=== PATIENT | male | born 1950 | race Caucasian/White ===

== ENCOUNTER → 2024-01-29 10:34 | Outpatient (CLI) | payer OTHER, SELFPAY ==
[2024-01-29 12:29] LABS: Alanine Aminotransferase 17 IU/L (<50); Albumin Globulin Ratio 1.3 (1.0-2.8); Alkaline Phosphatase 71 U/L (38-126); Aspartate Aminotransferase 20 IU/L (17-59); BUN Creatinine Ratio 23.7 (6-22); Bilirubin Total 0.7 mg/dL (0.2-1.3); Blood Urea Nitrogen 22 mg/dL (9-20); Calcium 8.9 mg/dL (8.4-10.2); Carbon Dioxide 31 mmol/L (22-32); Chloride 106 mmol/L (98-107); Cholesterol 109 mg/dL (140-199); Estimated Glomerular Filt Rate > 60 mL/min (>60); Globulin 3.1 g/dL (1.7-4.1); Glucose 129 mg/dL (80-110); HDL Cholesterol 47 mg/dL (40-60); HEMOLYSIS < 15 (0-50); LDL Cholesterol Calculated 44 mg/dL (<100); Potassium 4.7 mmol/L (3.4-5.1); Sodium 140 mmol/L (137-145); Total Protein 7.1 g/dL (6.3-8.2); Triglycerides 91 mg/dL (35-150)
[2024-01-29 12:58] LABS: Hemoglobin A1C% w Est Avg Glu 6.2 % (4.0-6.0)
[2024-01-29 17:53] LABS: Microalbumin Urine Random 0.7 mg/dL (0-1.6)
== END ==
LOC: LAB 10:35
PROVIDERS: PCP Family Medicine; Referring Provider Family Medicine; Visit Provider Family Medicine
DX: I10 Essential (primary) hypertension (principal); E11.9 Type 2 diabetes mellitus without complications
CPT/HCPCS: 36415; 80053; 80061; 82043; 82570; 83036

== ENCOUNTER → 2024-03-09 10:40 | Outpatient (CLI) | payer OTHER, SELFPAY ==
--- NOTE | 2024-03-09 10:42 | DI.RAD.S_ITS ---
PROCEDURE: XR HIP W PEL IF DONE JOSE MIN 4V INDICATIONS: osteoarthritis TECHNIQUE: AP pelvis with lateral view(s) of both hip(s). COMPARISON: None. FINDINGS: Bones: No fractures or dislocations. Pelvic ring appears intact. No suspicious bony lesions. Mild osteoarthritis both hip joints. Soft tissues: The visualized bowel gas pattern is normal. No suspicious soft tissue calcifications. Phleboliths are seen within the pelvis. IMPRESSION: 1. No acute fracture or dislocation. 2. Mild osteoarthritis to both hip joints. Dictated by: Luc Acosta M.D. on 03/09/2024 at 16:01 Approved by: Luc Acosta M.D. on 03/09/2024 at 16:05
--- NOTE | 2024-03-09 10:42 | DI.RAD.S_ITS ---
PROCEDURE: XR LUMBAR SPINE 2-3V INDICATIONS: osteoarthritis TECHNIQUE: 3 views of the lumbar spine were acquired. COMPARISON: None. FINDINGS: Bones: 5 [id number]-[id number] vertebrae are present. Minimal retrolisthesis of L5-S1. No vertebral body compression fractures. No suspicious bony lesions. Multilevel facet arthropathy. Mild multilevel disc height loss. Soft tissues: Overlying bowel gas pattern is normal. No suspicious soft tissue calcifications. IMPRESSION: 1. No acute fracture or subluxation. 2. Minimal retrolisthesis of L5 on S1. 3. Mild multilevel disc height loss. 4. Multilevel facet arthropathy. Dictated by: Luc Acosta M.D. on 03/09/2024 at 15:56 Approved by: Luc Acosta M.D. on 03/09/2024 at 16:01
[2024-03-09 12:39] LABS: Prostate Specific Antigen 0.145 ng/mL (0.10-4.00)
== END ==
PROVIDERS: PCP Family Medicine; Referring Provider Urology; Visit Provider Family Medicine
DX: M19.90 Unspecified osteoarthritis, unspecified site (principal); C61 Malignant neoplasm of prostate; M47.816 Spondylosis without myelopathy or radiculopathy, lumbar region; M16.0 Bilateral primary osteoarthritis of hip
CPT/HCPCS: 36415; 72100; 73522; 84153

== ENCOUNTER → 2024-03-17 13:41 | Outpatient (CLI) | payer OTHER, SELFPAY | LOC: CAR 13:43 | PROVIDERS: PCP Family Medicine; Referring Provider Family Medicine; Visit Provider Family Medicine | DX: I49.1 Atrial premature depolarization (principal); I10 Essential (primary) hypertension | CPT/HCPCS: 93242 ==

== ENCOUNTER → 2024-07-12 09:16 | Outpatient (CLI) | payer OTHER, SELFPAY ==
--- NOTE | 2024-07-12 09:16 | DI.ECHO.S_ITS ---
[place] [facility] : : [address] : : [address] [place] : : [id number] : : Phone: [phone] Echocardiogram Report + + :Name: LARISA DICKSON Study Date: 07/12/2024 Height: 71 in : :[facility] ReadingLocation: Weight: 190 lb : : Gender: Male BSA: 2.1 m2 : :: 1950 Age: 73 yrs BP: 160/78 mmHg: :Reason For Study: PALPITATIONS, PACs : :Ordering Physician: PATY, : :DU Performed By: Pancho Olivarez : :Referring: DU NEWMAN : + + Interpretation Summary The ejection fraction is estimated to be 50-55%. Diastolic function could not be accurately assessed due to contradictory data. The right ventricle is normal in size and function. There is mild biatrial enlargement. There is mild mitral regurgitation. There is mild aortic stenosis. There is mild to moderate aortic regurgitation. Pulmonary artery pressures cannot be estimated because of the lack of a measurable TR jet velocity but the IVC suggests a CVP of around 15 mmHg. Procedure: A two-dimensional transthoracic echocardiogram with color flow and Doppler was performed. The study quality was technically good. There is no prior echocardiogram noted for this patient. The patient was in normal sinus rhythm during the exam. Left Ventricle: The left ventricle is normal in size. There is normal left ventricular wall thickness. There is no ventricular septal defect visualized. The ejection fraction is estimated to be 50-55%. Septal motion is consistent with conduction abnormality. Diastolic function could not be accurately assessed due to contradictory data. Right Ventricle: The right ventricle is normal in size and function. Atria: There is mild biatrial enlargement. The atrial septum is aneurysmal. Mitral Valve: There is mild mitral annular calcification. The mitral valve leaflets appear mildly thickened, but open well. There is borderline mitral valve prolapse. There is mild mitral regurgitation. Aortic Valve: The aortic valve is trileaflet. Heavy calcification of the right coronary cusp. There is mild aortic stenosis. The peak aortic velocity is 2.6 m/sec. The aortic valve mean gradient is 17 mmHg. The calculated aortic valve area is 1.6 cm2. There is mild to moderate aortic regurgitation. Tricuspid Valve: The tricuspid valve leaflets are thickened and/or calcified, but open well. There is trace tricuspid regurgitation. Pulmonary artery pressures cannot be estimated because of the lack of a measurable TR jet velocity but the IVC suggests a CVP of around 15 mmHg. Pulmonic Valve: The pulmonic valve leaflets are thin and pliable; valve motion is normal. There is no pulmonic valvular regurgitation. Great Vessels: The aortic root is normal size. The dimensions of the ascending aorta are normal. The pulmonary artery is normal size. The IVC is dilated (diameter is greater than 2.1 cm) and it collapses less than 50% with a sniff. This suggests a high right atrial pressure of 15 mm Hg. Pericardium/ Pleura There is no pericardial effusion. There is no pleural effusion. MMode/2D Measurements & Calculations LVIDd: 5.0 cm LVOT diam: 2.2 cm LVIDs: 3.6 cm Ao root diam: 3.4 cm FS: 27.4 % asc Aorta Diam: 3.7 cm EPSS: 0.89 cm Ao Arch Diam (Prox Trans): 2.0 cm IVSd: 1.1 cm LVPWd: 1.00 cm LV james. diameter/BSA (cm/m^2): 2.4 LV sys. diameter/BSA (cm/m^2): 1.8 LA A2 area: 20.8 cm2 RA long axis: 4.8 cm LA A4 area: 21.1 cm2 RA area: 16.8 cm2 LA length (vol): 5.2 cm RA vol: 49.9 ml LA vol: 71.1 ml RA : 24.2 ml/m2 LA vol index: 34.5 ml/m2 IVC diam: 2.2 cm RVD1 (basal): 3.9 cm RVD2 (mid): 3.4 cm TAPSE: 2.4 cm Doppler Measurements & Calculations Ao V2 max: 262.7 cm/sec LVOT Max Harjit: 102.5 cm/sec Ao V2 mean: 192.6 cm/sec LV V1 max P.2 mmHg Ao max P.6 mmHg LV V1 VTI: 23.1 cm Ao mean P.2 mmHg AARON(I,D): 1.6 cm2 Ao V2 VTI: 55.7 cm AARON(V,D): 1.5 cm2 sev ratio: 0.41 AARON indexed to BSA (cm^2/m^2): 0.80 AI P1/2t: 421.3 msec AI dec slope: 317.1 cm/sec2 MV E max harjit: 46.2 cm/sec TR max harjit: 274.8 cm/sec MV A max harjit: 73.4 cm/sec TR max P.2 mmHg MV E/A: 0.63 PA V2 max: 89.1 cm/sec Med Peak E' Harjit: 5.0 cm/sec PA V2 mean: 47.1 cm/sec E/E' med: 9.2 PA mean P.2 mmHg Lat Peak E' Harjit: 6.3 cm/sec PA pr(Accel): 43.0 mmHg E/E' lat: 7.3 E/e' average: 8.3 MV dec time: 0.18 sec SV(LVOT): 91.5 ml AV P1/2t-pr_phl: 544.6 msec Reading Physician:01:56 PM
== END ==
LOC: ECHO 09:16
PROVIDERS: PCP Family Medicine; Referring Provider Family Medicine; Visit Provider Family Medicine
DX: I08.0 Rheumatic disorders of both mitral and aortic valves (principal); I49.1 Atrial premature depolarization; I45.4 Nonspecific intraventricular block
CPT/HCPCS: 93306

== ENCOUNTER → 2024-07-19 08:52 | Outpatient (CLI) | payer OTHER, SELFPAY ==
[2024-07-19 09:16] LABS: Add Manual Diff / Slide Review NO; Basophils Absolute Auto 0 /uL (0-100); Basophils Percent Auto 0.6 % (0-2); Eosinophils Absolute Auto 100 /uL (0-450); Eosinophils Percent Auto 2.5 % (2-4); Hematocrit 41.2 % (41-53); Hemoglobin 13.7 g/dL (13.5-17.5); Lymphocytes Absolute Auto 1100 /uL (1100-4500); Lymphocytes Percent Auto 19.6 % (25-40); Mean Corpuscular HGB Conc 33.3 % (30-36); Mean Corpuscular Hemoglobin 30.1 PG (26-34); Mean Corpuscular Volume 90.4 fL (80-100); Monocytes Absolute Auto 500 /uL (0-900); Neutrophils Absolute Auto 4000 /uL (1500-7000); Neutrophils Percent Auto 68.3 % (50-75); Platelet Count 207 X10^3/uL (150-400); Red Blood Cell Count 4.56 X10^6/uL (4.5-5.9); Red Cell Distribution Width 13.3 % (11.6-14.8); White Blood Cell Count 5.8 X10^3/uL (4.5-11.0)
[2024-07-19 09:35] LABS: INR 1.1 (0.9-1.3); Prothrombin Time 12.1 SECONDS (9.4-12.5)
[2024-07-19 09:46] LABS: Alanine Aminotransferase 21 IU/L (<50); Albumin 3.7 g/dL (3.5-5.0); Albumin Globulin Ratio 1.3 (1.0-2.8); Alkaline Phosphatase 63 U/L (38-126); Aspartate Aminotransferase 23 IU/L (17-59); BUN Creatinine Ratio 24.5 (6-22); Bilirubin Total 0.7 mg/dL (0.2-1.3); Blood Urea Nitrogen 25 mg/dL (9-20); Calcium 9.1 mg/dL (8.4-10.2); Carbon Dioxide 28 mmol/L (22-32); Chloride 104 mmol/L (98-107); Cholesterol 111 mg/dL (140-199); Estimated Glomerular Filt Rate > 60 mL/min (>60); Globulin 2.9 g/dL (1.7-4.1); Glucose 133 mg/dL (80-110); HDL Cholesterol 42 mg/dL (40-60); HEMOLYSIS < 15 (0-50); LDL Cholesterol Calculated 46 mg/dL (<100); Potassium 4.2 mmol/L (3.4-5.1); Sodium 135 mmol/L (137-145); Total Protein 6.6 g/dL (6.3-8.2); Triglycerides 117 mg/dL (35-150)
[2024-07-19 10:15] LABS: Prostate Specific Antigen 0.209 ng/mL (0.10-4.00)
== END ==
LOC: LAB 08:53
PROVIDERS: PCP Family Medicine; Referring Provider Urology; Visit Provider Urology
DX: Z01.818 Encounter for other preprocedural examination (principal); Z01.810 Encounter for preprocedural cardiovascular examination; C61 Malignant neoplasm of prostate; E11.9 Type 2 diabetes mellitus without complications; I49.1 Atrial premature depolarization; I10 Essential (primary) hypertension
CPT/HCPCS: 36415; 80053; 80061; 84153; 85025; 85610; 99214

== ENCOUNTER → 2025-01-16 10:15 | Outpatient (CLI) | payer OTHER, SELFPAY ==
[2025-01-16 11:14] LABS: Hemoglobin A1C% w Est Avg Glu 5.9 % (4.0-6.0)
[2025-01-16 11:57] LABS: Prostate Specific Antigen 0.084 ng/mL (0.10-4.00)
== END ==
LOC: LAB 10:16
PROVIDERS: PCP Family Medicine; Referring Provider Family Medicine; Visit Provider Urology
DX: C61 Malignant neoplasm of prostate (principal); E11.9 Type 2 diabetes mellitus without complications
CPT/HCPCS: 83036; 84153

== ENCOUNTER 2025-02-28 21:48 | Emergency (ER) | payer OTHER, SELFPAY ==
[2025-02-28 21:54] VITALS: BP 148/65; PULSE 82; RESP 16; TEMP 37.1; O2SAT 94; BMI 28.4
[2025-02-28 22:21] LABS: Add Manual Diff / Slide Review NO; Hematocrit 35.9 % (41-53); Hemoglobin 12.5 g/dL (13.5-17.5); Lymphocytes Absolute Auto 800 /uL (1100-4500); Mean Corpuscular HGB Conc 34.8 % (30-36); Mean Corpuscular Hemoglobin 31.5 PG (26-34); Mean Corpuscular Volume 90.5 fL (80-100); Platelet Count 170 X10^3/uL (150-400)
--- NOTE | 2025-02-28 22:28 | DI.CT.S_ITS ---
PROCEDURE: CT ABDOMEN PELVIS W CON INDICATIONS: RLQ pain TECHNIQUE: After the administration of intravenous contrast, axial sections acquired from the lung bases to the pubic symphysis. Coronal and sagittal reformats were performed. For radiation dose reduction, the following was used: automated exposure control, adjustment of mA and/or kV according to patient size. COMPARISON: None. FINDINGS: Image quality: Diagnostic. Lower Chest: No significant findings. ABDOMEN: Liver: No solid mass. Gallbladder: No radiopaque gallstones or wall thickening. Biliary ducts: No biliary dilation. Pancreas: No ductal dilation. Spleen: Size is within normal limits. Adrenal Glands: No adrenal nodules. Kidneys and Ureters: There is a large cystic structure extending from the inferior pole the right kidney measuring approximately 14.1 x 12.5 x 12.3 cm with some areas of heterogeneity peripherally. There is significant edema and fluid surrounding the right kidney. There is a component of subcapsular hematoma measuring approximately 2.1 cm in thickness. There is a small area of higher density within the fluid surrounding the kidney, suggestive of blood product. Stomach and Bowel: Normal colonic caliber, without significant wall thickening. Diverticulosis without evidence of acute diverticulitis. Large stool burden. Peritoneum: No abnormal intraperitoneal fluid. No free air. Ventral Wall: No significant ventral hernia. Abdominal Nodes: No retroperitoneal or mesenteric adenopathy by size criteria. Vessels: Aorta and inferior vena cava are normal in size. Atherosclerotic vascular calcifications. PELVIS: Pelvic Organs: Unremarkable. Bladder: No bladder wall thickening, accounting for underdistention. Pelvic Nodes: No enlarged lymph nodes. Miscellaneous: No inguinal hernias are seen. Bones: No aggressive osseous abnormality. Degenerative changes of the spine. IMPRESSION: Significant edema and fluid surrounding the right kidney. There is a subcapsular hematoma within the right kidney measuring 2.1 cm the. Large cystic structure extending from the inferior aspect of the right kidney measuring up to 14 cm with some peripheral heterogeneity. Differential includes partial rupture of the cyst with hemorrhage versus a large hemorrhagic mass. Recommend urology consultation. Dictated by: Marvin Santana M.D. on 02/28/2025 at 23:18 Approved by: Marvin Santana M.D. on 02/28/2025 at 23:27
[2025-02-28 22:34] LABS: Alanine Aminotransferase 18 IU/L (<50); Albumin 3.9 g/dL (3.5-5.0); Albumin Globulin Ratio 1.4 (1.0-2.8); Alkaline Phosphatase 65 U/L (38-126); Blood Urea Nitrogen 19 mg/dL (9-20); Calcium 8.6 mg/dL (8.4-10.2); Carbon Dioxide 27 mmol/L (22-32); Chloride 103 mmol/L (98-107); Estimated Glomerular Filt Rate > 60 mL/min (>60); Globulin 2.8 g/dL (1.7-4.1); Glucose 140 mg/dL (70-99); HEMOLYSIS < 15 (0-50); Lipase 45 U/L (23-300); Potassium 3.8 mmol/L (3.4-5.1); Sodium 136 mmol/L (137-145); Total Protein 6.7 g/dL (6.3-8.2)
[2025-03-01] VITALS (14 sets, daily range): BP systolic 129–150; BP diastolic 61–87; PULSE 72–88; RESP 16–20; O2SAT 93–96
--- NOTE | 2025-03-01 01:14 | ED_ITS ---
HPI - Abdominal Pain General Chief Complaint: Abdominal Pain Stated Complaint: lower right abd pain Time Seen by Provider: 02/28/25 22:28 Source: patient and family Mode of arrival: Ambulatory History of Present Illness HPI narrative: 74-year-old male with history of prostate cancer treated 3 years ago by [facility], no other cancers known, complained of nontraumatic right lower quadrant pain starting 3:00 p.m. yesterday, no nausea or vomiting, no diarrhea, no back pain. No painful or frequent urination. Related Data Home Medications ?Medication ?Instructions ?Recorded ?Confirmed aspirin 81 mg tablet,delayed 81 mg PO DAILY Thin my bl ood? 01/29/24 01/18/25 release flaxseed oil miscellaneous To help my dry skin 01/29/24 01/18/25 multivitamin 1 tab PO DAILY 01/29/2412/26 omega 8-vsl-vql-fish oil 1,000 mg 1 cap PO DAILY Healt h benefits 01/29/24 01/18/25 (120 mg-180 mg) capsule (Fish Oil) Previous Rx's ?Medication ?Instructions ?Recorded naproxen 250 mg tablet 250 mg PO BID PRN pain #30 t abs 02/29/24 atorvastatin 10 mg tablet 10 mg PO DAILY #90 tabs 04/27 03/19 metformin 500 mg tablet 500 mg PO TID Diabetes #270 tabs 06/28/24 amlodipine 5 mg tablet 5 mg PO DAILY HBP #90 tabs 0 08/18/24 alprostadil 40 mcg intracavernosal 40 mcg intra-cavern osal 3XW #1 ea 08/25/24 kit oxybutynin chloride 5 mg tablet 5 mg PO BID PRN To hel p control 09/13/24 urgency #180 tabs finasteride 1 mg tablet 1 mg PO DAILY hair loss #90 tabs 09/22/24 pantoprazole 40 mg tablet,delayed 40 mg PO DAILY To he lp with 09/26/24 release heartburn #90 tabs irbesartan 150 mg tablet 150 mg PO DAILY HBP #90 tabs 09/30/24 pramoxine 1 % topical foam 1 applic MI TID #15 grams 0 01/18/25 (Proctofoam) doxazosin 2 mg tablet 2 mg PO DAILY #90 tabs 01/30 Allergies Allergy/AdvReac Type Severity Reaction Status Date / Time lisinopril AdvReac Mild Cough Verified 02/28/25 21:54 Patient History Medical History Vision disorder Psoriasis Osteoarthritis Allergies Shoulder pain COVID (~2021) Mumps Measles Chicken pox Tinnitus Hearing loss History of elevated PSA (~2019) BPH (benign prostatic hyperplasia) (~2019) Hemorrhoid Low testosterone Diabetes mellitus PAC (premature atrial contraction) Hypertension Prostate cancer Surgical History Anesthesia History of tonsillectomy (~1954) History of cataract removal with insertion of prosthetic lens (~08/2022) Prostate cancer (~2021) History of thumb surgery (~2021) Family History Grandfather History of heart disease Grandmother Cancer Social History Smoking Status: Never smoker alcohol intake: current (6 drinks per year on vacation ) substance use type: does not use Smoking Status: Never smoker Exam Narrative Exam Narrative: GENERAL: Well-developed patient, in mild distress. HEAD: Atraumatic. Normocephalic. EYES: Pupils equal round and reactive. Extraocular motions intact. No scleral icterus. No injection or drainage. ENT: Nose without bleeding, purulent drainage. Throat without erythema, tonsillar hypertrophy or exudate. Airway patent. NECK: Trachea midline. Non tender CARDIOVASCULAR: Regular rate and rhythm without murmurs, gallops, or rubs. RESPIRATORY: Clear to auscultation. Breath sounds equal bilaterally. No wheezes, rales, or rhonchi. GASTROINTESTINAL: Abdominal mass mid right side, 10 cm diameter, nonpulsatile, not particularly tender. No overlying skin changes. Normal bowel tones. EXTREMITIES: No edema or joint tenderness. BACK: Nontender without deformity or crepitance. No flank tenderness. NEURO: AOx3. Motor functions grossly nonfocal. SKIN: No rash or erythema of visible areas Initial Vital Signs Initial Vital Signs: Vital Signs Temperature 98.8 F 02/28/25 21:54 Pulse Rate 82 02/28/25 21:54 Respiratory Rate 16 02/28/25 21:54 Blood Pressure 148/65 H 02/28/25 21:54 Pulse Oximetry 94 02/28/25 21:54 Oxygen Delivery Method Room Air 02/28/25 21:54 Course Orders Ordered: ED Orders 02/28/25 22:05 Complete Blood Count AUTO DIFF Stat Comprehensive Metabolic Panel Stat Lipase Stat 02/28/25 22:28 CT abdomen pelvis w con Stat 03/01/25 01:19 Prothrombin Time INR Stat 03/01/25 01:45 Hemoglobin and Hematocrit Stat Type and Screen Stat Discontinued Medications Morphine Sulfate (Morphine 4 Mg/Ml Inj) 4 mg IV NOW ONE Stop: 03/01/25 06:08 Last Admin: 03/01/25 06:16 Dose: 4 mg Documented By: QUIN Ondansetron HCl (Ondansetron 4 Mg/2 Ml Inj) 4 mg IV NOW PRN PRN Reason: Nausea And Vomiting Last Admin: 03/01/25 06:16 Dose: 4 mg Documented By: QUIN Ondansetron HCl (Ondansetron 4 Mg Odt) 4 mg PO NOW PRN PRN Reason: Nausea And Vomiting Vital Signs Vital signs: Vital Signs - 8 hr 03/01/25 00:16 03/01/25 01:05 03/01/25 01:06 Pulse Rate 88 78 Respiratory Rate 20 17 Blood Pressure 139/87 137/63 Pulse Oximetry 96 96 Oxygen Delivery Method Room Air 03/01/25 01:06 03/01/25 01:30 03/01/25 01:30 Pulse Rate 80 81 Respiratory Rate 17 Blood Pressure 150/65 H Pulse Oximetry 95 95 Oxygen Delivery Method Room Air 03/01/25 02:00 03/01/25 02:00 03/01/25 02:30 Pulse Rate 81 75 Respiratory Rate 18 Blood Pressure 133/63 Pulse Oximetry 95 94 Oxygen Delivery Method Room Air 03/01/25 02:30 03/01/25 02:59 03/01/25 03:00 Pulse Rate 74 Respiratory Rate 17 Blood Pressure 139/63 134/62 Pulse Oximetry 94 Oxygen Delivery Method Room Air 03/01/25 03:00 03/01/25 03:30 03/01/25 03:30 Pulse Rate 75 75 Respiratory Rate Blood Pressure 138/65 Pulse Oximetry 94 95 Oxygen Delivery Method 03/01/25 04:00 03/01/25 04:00 03/01/25 04:30 Pulse Rate 72 Respiratory Rate 17 Blood Pressure 141/63 H 129/63 Pulse Oximetry 94 Oxygen Delivery Method 03/01/25 04:30 03/01/25 05:00 03/01/25 05:00 Pulse Rate 77 77 Respiratory Rate 17 Blood Pressure 142/61 H Pulse Oximetry 94 93 Oxygen Delivery Method Room Air 03/01/25 05:30 03/01/25 05:30 03/01/25 06:00 Pulse Rate 79 Respiratory Rate 16 Blood Pressure 141/64 H 130/61 Pulse Oximetry 93 Oxygen Delivery Method Room Air 03/01/25 06:00 Pulse Rate 81 Respiratory Rate 17 Blood Pressure Pulse Oximetry 94 Oxygen Delivery Method Room Air MDM - Abdominal Pain Lab Data Attestation: I reviewed the patient's lab results. Lab results narrative: White blood cell count 7900, hemoglobin 12.5, platelets adequate. Glucose 140. BUN 19 with creatinine 0.99. Serum CO2 27. Electrolytes unremarkable. Liver functions and lipase normal. 03/01/25 01:45 02/28/25 22:05 Labs: Lab Results 02/28/25 03/01/25 Range/Units 22:05 01:45 WBC 7.9 (4.5-11.0) X10^3/uL RBC 3.96 L (4.5-5.9) X10^6/uL Hgb 12.5 L 12.1 L (13.5-17.5) g/dL Hct 35.9 L 34.9 L (41-53) % MCV 90.5 (80-100) fL MCH 31.5 (26-34) PG MCHC 34.8 (30-36) % RDW 12.6 (11.6-14.8) % Plt Count 170 (150-400) X10^3/uL Neut % (Auto) 78.2 H (50-75) % Lymph % (Auto) 10.5 L (25-40) % Pike % (Auto) 9.0 (3-14) % Eos % (Auto) 0.8 L (2-4) % Baso % (Auto) 1.5 (0-2) % Neut # (Auto) 6200 (1667-9658) /uL Lymph # (Auto) 800 L (1946-2121) /uL Pike # (Auto) 700 (0-900) /uL Eos # (Auto) 100 (0-450) /uL Baso # (Auto) 100 (0-100) /uL PT 12.7 H (9.4-12.5) SECONDS INR 1.1 (0.9-1.3) Sodium 136 L (137-145) mmol/L Potassium 3.8 (3.4-5.1) mmol/L Chloride 103 (98-107) mmol/L Carbon Dioxide 27 (22-32) mmol/L BUN 19 (9-20) mg/dL Creatinine 0.99 (0.66-1.25) mg/dL Estimated GFR > 60 (>60) mL/min BUN/Creatinine Ratio 19.2 (6-22) Glucose 140 H (70-99) mg/dL Calcium 8.6 (8.4-10.2) mg/dL Total Bilirubin 0.8 (0.2-1.3) mg/dL AST 22 (17-59) IU/L ALT 18 (<50) IU/L Alkaline Phosphatase 65 (38-126) U/L Total Protein 6.7 (6.3-8.2) g/dL Albumin 3.9 (3.5-5.0) g/dL Globulin 2.8 (1.7-4.1) g/dL Albumin/Globulin Ratio 1.4 (1.0-2.8) Lipase 45 (23-300) U/L Blood Type A Negative Antibody Screen Negative Imaging Data CT scan - abdomen/pelvis: Radiologist's Impression: [place] [address] CT Scan Report Signed Patient: Axel Briggs MR#: [id number] : 1950 Acct:[id number] Age/Sex: 74 / M Date of Service: 02/28/25 Loc: ED Accession Number: [id number] Procedure: CT abdomen pelvis w con Ordering Provider: George Dickinson MD PROCEDURE: CT ABDOMEN PELVIS W CON INDICATIONS: RLQ pain TECHNIQUE: After the administration of intravenous contrast, axial sections acquired from the lung bases to the pubic symphysis. Coronal and sagittal reformats were performed. For radiation dose reduction, the following was used: automated exposure control, adjustment of mA and/or kV according to patient size. COMPARISON: None. FINDINGS: Image quality: Diagnostic. Lower Chest: No significant findings. ABDOMEN: Liver: No solid mass. Gallbladder: No radiopaque gallstones or wall thickening. Biliary ducts: No biliary dilation. Pancreas: No ductal dilation. Spleen: Size is within normal limits. Adrenal Glands: No adrenal nodules. Kidneys and Ureters: There is a large cystic structure extending from the inferior pole the right kidney measuring approximately 14.1 x 12.5 x 12.3 cm with some areas of heterogeneity peripherally. There is significant edema and fluid surrounding the right kidney. There is a component of subcapsular hematoma measuring approximately 2.1 cm in thickness. There is a small area of higher density within the fluid surrounding the kidney, suggestive of blood product. Stomach and Bowel: Normal colonic caliber, without significant wall thickening. Diverticulosis without evidence of acute diverticulitis. Large stool burden. Peritoneum: No abnormal intraperitoneal fluid. No free air. Ventral Wall: No significant ventral hernia. Abdominal Nodes: No retroperitoneal or mesenteric adenopathy by size criteria. Vessels: Aorta and inferior vena cava are normal in size. Atherosclerotic vascular calcifications. PELVIS: Pelvic Organs: Unremarkable. Bladder: No bladder wall thickening, accounting for underdistention. Pelvic Nodes: No enlarged lymph nodes. Miscellaneous: No inguinal hernias are seen. Bones: No aggressive osseous abnormality. Degenerative changes of the spine. IMPRESSION: Significant edema and fluid surrounding the right kidney. There is a subcapsular hematoma within the right kidney measuring 2.1 cm the. Large cystic structure extending from the inferior aspect of the right kidney measuring up to 14 cm with some peripheral heterogeneity. Differential includes partial rupture of the cyst with hemorrhage versus a large hemorrhagic mass. Recommend urology consultation. Dictated by: Marvin Santana M.D. on 02/28/2025 at 23:18 Approved by: Marvin Santana M.D. on 02/28/2025 at 23:27 [facility] Narrative Medical decision making narrative: 74-year-old male with right lower quadrant pain since 3:00 p.m. yesterday, has mass on examination right mid quadrant without significant tenderness, seems to be nonpulsatile. Afebrile, sirs screen negative. Labs pending. Renal function favorable. CT abdomen and pelvis ordered. CT abdomen and pelvis. Impressions: Significant edema and fluid surrounding the right kidney. There is a subcapsular hematoma within the right kidney measuring 2.1 cm the. Large cystic structure extending from the inferior aspect of the right kidney measuring up to 14 cm with some peripheral heterogeneity. Differential includes partial rupture of the cyst with hemorrhage versus a large hemorrhagic mass. Recommend urology consultation. See radiology report. Copy of the report provided to patient/ at bedside, we will consult with urology on-call here Dr. Chavez. Case discussed with Dr. Chavez who feels that patient deserves transfer to higher level of care, possible expanding hematoma mass, does not feel comfortable managing at this small hospital. We will reach out to [facility] in other tertiary facilities. He has been at [facility] for prostate surgery Cancer Care three years ago. Keep NPO. 0245, case discussed with [facility] urology on-call Dr. Damon who was able to see the transmitted images, advises transfer to their hospitalist service, who will consult. Await call back from hospitalist. [phone], case discussed with [facility] hospitalist [facility] Dr. Hsieh, accepts patient for transfer, await bed assignment. Bed assignment now available, we will arrange EMS transport Now outpatient desires pain control, IV morphine 4 mg. Keep NPO. 0520, EMS ground transport initiated to [facility]. Critical Care Time Critical Care Time Critical Care Time: Yes Total Critical Care Time: 35 Attestation: The high probability of a clinically significant, sudden or life threatening deterioration of the [urologic, renal] system(s) required my full and direct attention, intervention and personal management. The aggregate critical care time was [31] minutes. This time is in addition to time spent performing reported procedures but includes the following: [x] Data Review and interpretation [x] Patient assessment and monitoring of vital signs [x] Documentation [x] Medication orders and management Discharge Plan Departure Patient Disposition: [facility] Clinical Impression: Mass of right kidney Prescriptions: No Action atorvastatin 10 mg tablet 10 mg PO DAILY Qty: 90 3RF metformin 500 mg tablet 500 mg PO TID Qty: 270 3RF amlodipine 5 mg tablet 5 mg PO DAILY Qty: 90 3RF alprostadil 40 mcg kit 40 mcg intra-cavernosal 3XW Qty: 1 11RF oxybutynin chloride 5 mg tablet 5 mg PO BID PRN (Reason: To help control urgency) Qty: 180 3RF finasteride 1 mg tablet 1 mg PO DAILY Qty: 90 3RF pantoprazole 40 mg tablet,delayed release (DR/EC) 40 mg PO DAILY Qty: 90 3RF irbesartan 150 mg tablet 150 mg PO DAILY Qty: 90 3RF doxazosin 2 mg tablet 2 mg PO DAILY Qty: 90 3RF naproxen 250 mg tablet 250 mg PO BID PRN (Reason: pain) Qty: 30 0RF Rx Instructions: 250 to 500 mg every 12 hours PRN multivitamin Tablet 1 tab PO DAILY flaxseed oil Oil miscellaneous aspirin 81 mg tablet,delayed release (DR/EC) 81 mg PO DAILY Patient Comments: I have been taking this most of the past 20 years omega 0-akr-wje-fish oil [Fish Oil] 1,000 mg (120 mg-180 mg) capsule 1 cap PO DAILY pramoxine [Proctofoam] 1 % foam 1 applic MI TID Qty: 15 3RF Referrals: Niurka Mccloud DO [Primary Care Provider, Family Practice]
[2025-03-01 01:27] LABS: INR 1.1 (0.9-1.3); Prothrombin Time 12.7 SECONDS (9.4-12.5)
[2025-03-01 02:02] LABS: Hematocrit 34.9 % (41-53); Hemoglobin 12.1 g/dL (13.5-17.5)
[2025-03-01] MEDS: ONDANSETRON 4 MG/2 ML INJ IV (06:16)
[2025-03-01] MEDS: MORPHINE 4 MG/ML INJ IV (06:16)
== END 2025-03-01 06:20 | disposition short-term general hospital (02) ==
PROVIDERS: Emergency Provider Emergency Medicine; PCP Family Medicine
DX: N28.89 Other specified disorders of kidney and ureter (principal); Z85.46 Personal history of malignant neoplasm of prostate
CPT/HCPCS: 36415; 74177; 80053; 83690; 85014; 85018; 85025; 85610; 86850; 86900; 86901; 96374; 96375; 99284; 99291; J2270; J2405; Q9967

== ENCOUNTER → 2025-05-31 08:42 | Outpatient (CLI) | payer OTHER, SELFPAY ==
--- NOTE | 2025-05-31 08:44 | DI.CT.S_ITS ---
PROCEDURE: CT ABDOMEN PELVIS W CON
[2025-05-31 09:06] LABS: Estimated Glomerular Filt Rate > 60 mL/min (>60)
[2025-05-31 10:38] LABS: Prostate Specific Antigen 0.089 ng/mL (0.10-4.00)
== END ==
PROVIDERS: PCP Family Medicine; Referring Provider Urology; Visit Provider Urology
DX: S37.011D Minor contusion of right kidney, subsequent encounter (principal); N40.1 Benign prostatic hyperplasia with lower urinary tract symptoms; K57.90 Diverticulosis of intestine, part unspecified, without perforation or abscess without bleeding; K44.9 Diaphragmatic hernia without obstruction or gangrene; N28.9 Disorder of kidney and ureter, unspecified
CPT/HCPCS: 36415; 74177; 82565; 84153; Q9967

== ENCOUNTER → 2025-07-05 08:11 | Outpatient (CLI) | payer OTHER, SELFPAY ==
--- NOTE | 2025-07-05 08:12 | DI.MRI.S_ITS ---
PROCEDURE: MR ABDOMEN RENAL PROTOCOL INDICATIONS: 74 y/o M w/ concern for right Bosniak 4 lesion, eval TECHNIQUE: Coronal HASTE through abdomen and pelvis; axial 2D FLASH in- and [id number] (with and without fat saturation), and breath-hold T2 FSE from the hepatic dome to the bottom of the kidneys. Coronal HASTE MR urogram of kidneys and bladder. Dynamic coronal VIBE during IV gadolinium administration; postgadolinium axial VIBE or 2D FLASH with fat saturation from the hepatic dome through the kidneys. COMPARISON: [facility], CT, CT ABDOMEN PELVIS W CON, 05/31/2025, 10:00. FINDINGS: Image quality: Diagnostic. Kidneys and Ureters: A large, exophytic cystic mass arises from the lower pole right kidney displacing adjacent right abdominal structures, and measures 14.2 x 12.4 x 12.2 cm. There is internal high T1 and T2 signal as well as a uniformly thickened wall measuring between four and 8 mm, innumerable, irregular septations versus debris, and a mildly nodular margin along the superior surface. The nodularity along the superior posterior margin measures roughly 1.3 cm and demonstrates mild enhancement postcontrast. See postcontrast axial series 13 images 64 through 66. The more anterior mural nodule measures roughly 5.3 x 1.9 cm and demonstrates mild internal enhancement. Notably, the innumerable septations elsewhere throughout the mass are nonenhancing. There are few peripheral areas of restricted diffusion which are nonspecific. An adjacent 3.6 cm simple cyst arises medial from the right midpole. A 1.5 cm corticomedullary, round, T2 hypointense mass in the midpole left kidney lateral region demonstrates a single, faint, minimally enhancing septation, and no significant restricted diffusion. OTHER: Lung bases: Unremarkable. Liver: No solid mass. Probable right lateral subcapsular segment eight perfusion anomaly. Gallbladder: No stones, wall thickening, or pericholecystic fluid Biliary ducts: No biliary dilation. Pancreas: Normal size and morphology without visible ductal dilatation or inflammation. No suspicious enhancement. Spleen: Size is within normal limits. Adrenal Glands: No adrenal nodules. Stomach and Bowel: Stomach and visible bowel loops are within normal limits. Peritoneum: No abnormal intraperitoneal fluid. No free air. Ventral Wall: No hernia. Abdominal Nodes: No retroperitoneal or mesenteric adenopathy by size criteria. Vessels: The abdominal aorta, IVC, and portal vein are of normal caliber. No right renal vein thrombus. Bones: No aggressive osseous abnormality. 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 No evidence of renal vein thrombosis or adjacent adenopathy. Bosniak II F endophytic, left renal cystic mass. Dictated by: Jaclyn Horta M.D. on 07/06/2025 at 8:42 Approved by: Jaclyn Horta M.D. on 07/06/2025 at 9:23
== END ==
LOC: MRI 08:12
PROVIDERS: PCP Family Medicine; Referring Provider Urology; Visit Provider Urology
DX: N28.89 Other specified disorders of kidney and ureter (principal); N28.1 Cyst of kidney, acquired
CPT/HCPCS: 74183; A9579

== ENCOUNTER → 2025-07-26 11:35 | Outpatient (CLI) | payer OTHER, SELFPAY ==
[2025-07-26 12:13] LABS: Hemoglobin A1C% w Est Avg Glu 6.1 % (4.0-6.0)
[2025-07-26 12:36] LABS: Alanine Aminotransferase 18 IU/L (<50); Albumin 4.2 g/dL (3.5-5.0); Albumin Globulin Ratio 1.4 (1.0-2.8); Alkaline Phosphatase 63 U/L (38-126); Blood Urea Nitrogen 14 mg/dL (9-20); Calcium 8.9 mg/dL (8.4-10.2); Carbon Dioxide 30 mmol/L (22-32); Chloride 105 mmol/L (98-107); Cholesterol 102 mg/dL (140-199); Estimated Glomerular Filt Rate > 60 mL/min (>60); Globulin 2.9 g/dL (1.7-4.1); Glucose 126 mg/dL (70-99); HDL Cholesterol 48 mg/dL (40-60); HEMOLYSIS < 15 (0-50); Potassium 4.4 mmol/L (3.4-5.1); Sodium 140 mmol/L (137-145); Total Protein 7.1 g/dL (6.3-8.2); Triglycerides 89 mg/dL (35-150)
[2025-07-26 12:57] LABS: Prostate Specific Antigen 0.106 ng/mL (0.10-4.00)
[2025-07-26 15:26] LABS: Microalbumi Creatinin Ratio Ur 25.0 ug/mg CR (<30)
== END ==
PROVIDERS: Urology; PCP Family Medicine; Referring Provider Family Medicine; Visit Provider Family Medicine
DX: N40.1 Benign prostatic hyperplasia with lower urinary tract symptoms (principal); C61 Malignant neoplasm of prostate; E11.9 Type 2 diabetes mellitus without complications; R10.9 Unspecified abdominal pain; E78.5 Hyperlipidemia, unspecified
CPT/HCPCS: 36415; 80053; 80061; 82043; 82570; 83036; 84153